=== PATIENT | male | born 1975 | race Caucasian/White ===

== ENCOUNTER → 2019-01-18 | Outpatient (CLI) | payer OTHER, BC ==
[~2019-01-18] MED LIST: NO HOME MEDS; OMEP10CASR PO; PERCOCET PO
[2019-01-18 13:21] LABS: BASO # 0.1 10^3/uL (0.0-0.2); BASO % 0.9 % (0.0-1.0); EOS # 0.1 10^3/uL (0.0-0.50); EOS % 1.3 % (0.0-3.0); HEMATOCRIT 47.7 % (42.0-52.0); HEMOGLOBIN 15.8 g/dl (13.5-17.5); LYMPH # 1.9 10^3/uL (1.5-4.5); LYMPH % 34.5 % (24.0-44.0); MEAN CORPUSCULAR HEMOGLOBIN 29.1 pg (27.0-33.0); MEAN CORPUSCULAR HGB CONC 33.1 g/dl (32.0-36.5); MEAN CORPUSCULAR VOLUME 87.8 fl (80.0-96.0); MONO # 0.4 10^3/uL (0.0-0.8); MONO % 7.5 % (0.0-5.0); NEUTROPHILS # 3.1 10^3/uL (1.8-7.7); NEUTROPHILS % 55.4 % (36.0-66.0); PLATELET COUNT, AUTOMATED 213 10^3/uL (150-450); RED BLOOD COUNT 5.43 10^6/uL (4.30-6.10); WHITE BLOOD COUNT 5.6 10^3/uL (4.0-10.0)
[2019-01-18 13:37] LABS: ALBUMIN 3.9 GM/DL (3.2-5.2); ALT/SGPT 32 U/L (12-78); BILIRUBIN,TOTAL 0.8 MG/DL (0.2-1.0); BLOOD UREA NITROGEN 25 MG/DL (7-18); CALCIUM LEVEL 8.8 MG/DL (8.5-10.1); CARBON DIOXIDE LEVEL 27 MEQ/L (21-32); CHLORIDE LEVEL 109 MEQ/L (98-107); CHOLESTEROL LEVEL 140 MG/DL (<200); CREATININE FOR GFR 0.97 MG/DL (0.70-1.30); FREE T4 1.09 NG/DL (0.76-1.46); GLOMERULAR FILTRATION RATE > 60.0 (>60); GLUCOSE, FASTING 100 MG/DL (70-100); HDL CHOLESTEROL 25 MG/DL (>40); LDL CHOLESTEROL 85 MG/DL (<100); NON-HDL-C 115 MG/DL; POTASSIUM SERUM 4.3 MEQ/L (3.5-5.1); PROSTATIC SPECIFIC AG MONITOR 1.16 NG/ML (< 4.00); SODIUM LEVEL 141 MEQ/L (136-145); TRIGLYCERIDES LEVEL 151 MG/DL (<150)
[2019-01-18 13:57] LABS: HEMOGLOBIN A1c 5.6 %
== END ==
LOC: M WUC 09:34
PROVIDERS: ATTEND Physician Assistant
DX: Z13.29 Encounter for screening for other suspected endocrine disorder (principal)

== ENCOUNTER → 2019-03-08 | Outpatient (REF) | payer OTHER ==
[2019-03-08 18:10] LABS: CHLAMYDIA DNA AMPLIFICATION NEGATIVE (NEGATIVE); GC DNA AMPLIFICATION NEGATIVE (NEGATIVE)
== END ==
LOC: M LAB REF 15:10
PROVIDERS: ATTEND Physician Assistant
DX: Z11.3 Encounter for screening for infections with a predominantly sexual mode of transmission (principal)

== ENCOUNTER → 2019-09-16 | Outpatient (CLI) | payer BC, OTHER ==
--- NOTE | 2019-09-21 10:17 | SLEEPCENT ---
DATE OF PROCEDURE: 09/16/2019 ORDERED BY: Dennise Pitts NP Nocturnal polysomnography was performed for evaluation of sleep physiology in this patient with a history of excessive somnolence and nonrestorative sleep. 8 hours and 4 minutes of data were reviewed. There were 334.5 minutes of sleep identified. Sleep latency was prolonged at 84 minutes. Rapid eye movement (REM) latency was prolonged at 128 minutes. Sleep architecture initially quite fragmented improved after interventions were made. Overall sleep efficiency was 69.9%. The patient's electrocardiogram showed a sinus rhythm with an average heart rate of 75 beats per minute. Electroencephalogram (EEG) showed normal waveforms for awake and sleep, some mild alpha intrusion. There were 124 respiratory events identified of 10 seconds in duration or greater for an apnea-hypopnea index of 22.2. Having clearly established the presence of obstructive sleep apnea syndrome early in testing, the study was stopped shortly before midnight for the application of pressure therapy. A ResMed Quattro full-face mask of large size was used; 5 cm of water pressure were applied to the circuit and the lights were extinguished. Throughout the remaining hours of testing pressure titration was performed. Respiratory events were reasonably palliated. Late in the study, the patient moved into the left lateral recumbent position and snoring was noted with mild hypopneic patterning. Best sleep was seen on a CPAP pressure of +17. IMPRESSION: Obstructive sleep apnea syndrome (G47.33). Apnea-hypopnea index 22.2. RECOMMENDATIONS: Nightly use of pressure therapy 17 cm of water.
== END ==
LOC: M SLEEP 20:33
PROVIDERS: ATTEND Nurse Practitioner Adult Health
DX: G47.33 Obstructive sleep apnea (adult) (pediatric) (principal)

== ENCOUNTER → 2020-08-23 | Outpatient (CLI) | payer BC, OTHER ==
--- NOTE | 2020-08-23 09:35 | REP ---
INDICATION: SPRAIN OR RIGHT WRIST AND RIGHT THUMB COMPARISON: None. TECHNIQUE: Four views FINDINGS: There is no fracture or dislocation. Mineralization and joint spaces are normal. There are no calcifications or foreign bodies. IMPRESSION: Essentially negative right thumb. <Electronically signed by Odilon Pan > 08/23/20 0941
--- NOTE | 2020-08-23 09:35 | REP ---
INDICATION: SPRAIN OR RIGHT WRIST AND RIGHT THUMB COMPARISON: None. TECHNIQUE: Four views FINDINGS: There is no fracture or dislocation. Mineralization and joint spaces are normal. There are no calcifications or foreign bodies. IMPRESSION: Essentially negative right wrist. . <Electronically signed by Odilon Pan > 08/23/20 0931
== END ==
LOC: M WUC 08:48
PROVIDERS: ATTEND Physician Assistant
DX: S63.511A Sprain of carpal joint of right wrist, initial encounter (principal); S63.641A Sprain of metacarpophalangeal joint of right thumb, initial encounter; X58.XXXA Exposure to other specified factors, initial encounter; Y92.9 Unspecified place or not applicable

== ENCOUNTER 2020-10-16 11:14 | Emergency (ER) | payer BC, OTHER ==
[~2020-10-16] VITALS: Ht 182.9 cm; Wt 146.7 kg
[2020-10-16] MEDS ORDERED: LISI-898 (11:26)
[2020-10-16] MEDS ORDERED: AUGM875T28 PO (14:03)
[2020-10-16 14:09] VITALS: BP 144/92
== END 2020-10-16 14:21 | disposition home or self-care (01) ==
LOC: M ED 11:14
DX: J02.9 Acute pharyngitis, unspecified (principal); I10 Essential (primary) hypertension; Z79.899 Other long term (current) drug therapy; Z91.018 Allergy to other foods; Z91.030 Bee allergy status

== ENCOUNTER → 2020-12-08 | Outpatient (CLI) | payer BC, OTHER ==
[~2020-12-08] MED LIST changes: +AUGM875T28 PO; +LISI-898
[2020-12-08 11:00] LABS: BASO # 0.1 10^3/uL (0.0-0.2); BASO % 0.9 % (0.0-1.0); EOS # 0.1 10^3/uL (0.0-0.5); EOS % 1.3 % (0.0-3.0); HEMOGLOBIN 16.9 g/dl (13.5-17.5); LYMPH # 1.9 10^3/uL (1.5-5.0); LYMPH % 27.4 % (24.0-44.0); MEAN CORPUSCULAR HEMOGLOBIN 29.1 pg (27.0-33.0); MEAN CORPUSCULAR HGB CONC 33.1 g/dl (32.0-36.5); MEAN CORPUSCULAR VOLUME 87.9 fl (80.0-96.0); MONO # 0.4 10^3/uL (0.0-0.8); MONO % 6.3 % (2.0-8.0); NEUTROPHILS # 4.4 10^3/uL (1.5-8.5); NEUTROPHILS % 63.8 % (36.0-66.0); PLATELET COUNT, AUTOMATED 204 10^3/uL (150-450); WHITE BLOOD COUNT 6.9 10^3/uL (4.0-10.0)
[2020-12-08 11:32] LABS: ALBUMIN 3.7 GM/DL (3.2-5.2); ALT/SGPT 34 U/L (12-78); BILIRUBIN,TOTAL 0.6 MG/DL (0.2-1.0); BLOOD UREA NITROGEN 22 MG/DL (7-18); CALCIUM LEVEL 9.1 MG/DL (8.5-10.1); CARBON DIOXIDE LEVEL 28 MEQ/L (21-32); CHLORIDE LEVEL 107 MEQ/L (98-107); CHOLESTEROL LEVEL 162 MG/DL (<200); CREATININE FOR GFR 0.88 MG/DL (0.70-1.30); GLOMERULAR FILTRATION RATE > 60.0 (>60); GLUCOSE, FASTING 115 MG/DL (70-100); HDL CHOLESTEROL 24 MG/DL (>40); LDL CHOLESTEROL 98 MG/DL (<100); NON-HDL-C 138 MG/DL; NT-PRO BNP 38 PG/ML (<125); POTASSIUM SERUM 4.6 MEQ/L (3.5-5.1); SODIUM LEVEL 140 MEQ/L (136-145); TOTAL PROTEIN 7.3 GM/DL (6.4-8.2); TRIGLYCERIDES LEVEL 201 MG/DL (<150)
[2020-12-08 13:24] LABS: HEMOGLOBIN A1c 5.4 %
== END ==
LOC: M LAB 10:28
PROVIDERS: ATTEND Physician Assistant
DX: I10 Essential (primary) hypertension (principal)
CPT/HCPCS: 36415; 80053; 80061; 83036; 83880; 85025; G0103

== ENCOUNTER → 2021-03-07 | Outpatient (REF) | payer OTHER ==
[2021-03-07 19:56] LABS: BACTERIA, URINE AUTO NEGATIVE (NEGATIVE); MUCUS, URINE SMALL (NEGATIVE); RBC, URINE AUTO 5 /HPF (0-3); SQUAMOUS EPITHELIAL CELL UR AU 0 /HPF (0-6); WBC, URINE AUTO 1 /HPF (0-3)
== END ==
LOC: M LAB REF 19:40
PROVIDERS: ATTEND Nurse Practitioner Family
DX: R31.9 Hematuria, unspecified (principal)

== ENCOUNTER 2022-03-13 20:06 | Emergency (ER) | payer OTHER ==
[~2022-03-13] VITALS: Ht 182.9 cm; Wt 106.7 kg
[~2022-03-13 20:06] MED LIST changes: -LISI-898; +LISI5TAB11
[2022-03-13 20:08] VITALS: BP 160/90
[2022-03-13] MEDS ORDERED: LIDOCAINE 5% (LIDODERM) PATCH TD ONE (21:40)
[2022-03-13] MEDS ORDERED: LIDO5DIS41 TD (21:44)
[2022-03-14] MEDS ORDERED: **NOTE PATIENT COMMENT** MISC XX SCH (09:30)
== END 2022-03-13 22:17 | disposition home or self-care (01) ==
LOC: M ED 20:06
DX: S22.32XA Fracture of one rib, left side, initial encounter for closed fracture (principal); V49.9XXA Car occupant (driver) (passenger) injured in unspecified traffic accident, initial encounter; Y92.410 Unspecified street and highway as the place of occurrence of the external cause; I10 Essential (primary) hypertension; Z91.018 Allergy to other foods; Z91.030 Bee allergy status; Z79.899 Other long term (current) drug therapy

== ENCOUNTER 2022-09-08 10:17 | Emergency (ER) | payer BC, OTHER ==
[~2022-09-08] VITALS: Ht 182.9 cm; Wt 163.0 kg
[~2022-09-08 10:17] MED LIST changes: +LIDO5DIS41 TD
[2022-09-08] MEDS ORDERED: BENZ200C70 (10:32)
[2022-09-08] MEDS ORDERED: ALBU8.5H (10:32)
[2022-09-08] MEDS ORDERED: IPRATROPIUM 0.5MG/ALBUTEROL 2.5MG INH SOL UD 3ML (DUONEB) NEB ONE (11:50)
[2022-09-08 13:10] LABS: BASO # 0.1 10^3/uL (0.0-0.2); EOS # 0.1 10^3/uL (0.0-0.5); EOS % 1.9 % (0.0-3.0); HEMOGLOBIN 15.5 g/dl (13.5-17.5); LYMPH # 1.3 10^3/uL (1.5-5.0); MEAN CORPUSCULAR HEMOGLOBIN 29.1 pg (27.0-33.0); MEAN CORPUSCULAR HGB CONC 31.6 g/dl (32.0-36.5); MEAN CORPUSCULAR VOLUME 92.1 fl (80.0-96.0); MONO # 0.6 10^3/uL (0.0-0.8); MONO % 10.9 % (2.0-8.0); NEUTROPHILS # 3.1 10^3/uL (1.5-8.5); NEUTROPHILS % 60.8 % (36.0-66.0); PLATELET COUNT, AUTOMATED 210 10^3/uL (150-450); RED BLOOD COUNT 5.32 10^6/uL (4.30-6.10); WHITE BLOOD COUNT 5.2 10^3/uL (4.0-10.0)
[2022-09-08 13:30] LABS: CK-MB VALUE MASS < 1.0 NG/ML (<3.6)
[2022-09-08 13:31] LABS: BLOOD UREA NITROGEN 19 MG/DL (9-23); CALCIUM LEVEL 8.8 MG/DL (8.5-10.1); CARBON DIOXIDE LEVEL 24 MMOL/L (20-31); CHLORIDE LEVEL 105 MMOL/L (98-107); CREATININE FOR GFR 0.86 MG/DL (0.70-1.30); GLOMERULAR FILTRATION RATE > 60.0 (>60); GLUCOSE, FASTING 115 MG/DL (60-100); POTASSIUM SERUM 4.9 MMOL/L (3.5-5.1); SODIUM LEVEL 140 MMOL/L (136-145)
[2022-09-08 13:32] LABS: CPK CREATINE PHOSPHOKINASE 144 U/L (46-171); MB/CK RELATIVE INDEX 0.69 (< OR =4)
[2022-09-08] MEDS ORDERED: ISOVUE-370 76% 100ML VIAL As Ordered ONE (13:51)
[2022-09-08] MEDS ORDERED: GUAI1SOL7 PO (14:49)
[2022-09-08] MEDS ORDERED: FLON1SPR NARES (14:49)
[2022-09-08] MEDS ORDERED: PRED20TA PO (14:49)
[2022-09-08] MEDS ORDERED: CLAR10CA3 PO (14:49)
[2022-09-08 14:57] VITALS: BP 144/85
== END 2022-09-08 15:50 | disposition home or self-care (01) ==
LOC: M ED 10:17
DX: R06.00 Dyspnea, unspecified (principal); J06.9 Acute upper respiratory infection, unspecified; E66.01 Morbid (severe) obesity due to excess calories; I10 Essential (primary) hypertension; K21.9 Gastro-esophageal reflux disease without esophagitis; Z79.899 Other long term (current) drug therapy; Z91.013 Allergy to seafood; Z91.030 Bee allergy status
CPT/HCPCS: 71046; 71275; 80048; 82550; 82553; 83880; 84484; 85025; 85379; 87428; 93005; 94640; 96374; 99284; J1100

== ENCOUNTER → 2024-02-28 | Outpatient (CLI) | payer BC ==
[~2024-02-28] MED LIST changes: +ALBU8.5H; +BENZ200C70; +CLAR10CA3 PO; +FLON1SPR NARES; +GUAI1SOL7 PO; +PRED20TA PO
== END ==
LOC: M RAD 08:55
PROVIDERS: ATTEND Physician Assistant
DX: J45.901 Unspecified asthma with (acute) exacerbation (principal)

== ENCOUNTER 2024-04-09 08:52 | Emergency (ER) | payer BC ==
[~2024-04-09] VITALS: Ht 182.9 cm; Wt 163.0 kg
[2024-04-09] MEDS ORDERED: ISOVUE-370 76% 100ML VIAL As Ordered ONE (15:09)
[2024-04-09] MEDS: ONDANSETRON 4MG 2ML VIAL IV ONE (15:13)
[2024-04-09] MEDS: NS 1,000 ML IV ONE (15:14)
[2024-04-09 15:23] LABS: BASO % 0.5 % (0.0-1.0); EOS # 0.1 10^3/uL (0.0-0.5); EOS % 1.2 % (0.0-3.0); HEMATOCRIT 47.4 % (42.0-52.0); HEMOGLOBIN 15.5 g/dl (13.5-17.5); LYMPH % 25.4 % (24.0-44.0); MEAN CORPUSCULAR HGB CONC 32.7 g/dl (32.0-36.5); MEAN CORPUSCULAR VOLUME 91.7 fl (80.0-96.0); MONO # 0.6 10^3/uL (0.0-0.8); MONO % 7.8 % (2.0-8.0); NEUTROPHILS % 64.7 % (36.0-66.0); PLATELET COUNT, AUTOMATED 206 10^3/uL (150-450); RED BLOOD COUNT 5.17 10^6/uL (4.30-6.10); WHITE BLOOD COUNT 7.7 10^3/uL (4.0-10.0)
[2024-04-09 15:28] LABS: BILIRUBIN,DIRECT 0.2 MG/DL (<0.4); BILIRUBIN,TOTAL 1.2 MG/DL (0.3-1.2); TOTAL PROTEIN 7.5 G/DL (5.7-8.2)
[2024-04-09 19:32] VITALS: BP 133/85; TEMP 97.9; O2SAT 96
[2024-04-09] MEDS ORDERED: ONDA-282 PO (20:05)
== END 2024-04-09 21:37 | disposition home or self-care (01) ==
LOC: M ED 08:52
DX: K43.9 Ventral hernia without obstruction or gangrene (principal); R11.2 Nausea with vomiting, unspecified; R19.7 Diarrhea, unspecified; I10 Essential (primary) hypertension; K21.9 Gastro-esophageal reflux disease without esophagitis; Z91.030 Bee allergy status; Z91.013 Allergy to seafood
CPT/HCPCS: 74177; 80047; 80076; 83605; 83690; 85025; 87507; 96374; 99284; J2405; Q9967

== ENCOUNTER 2024-11-21 20:12 | Emergency (ER) | payer BC ==
[~2024-11-21] VITALS: Ht 182.9 cm; Wt 171.4 kg
[~2024-11-21 20:12] MED LIST changes: +ONDA-282 PO
[2024-11-21] MEDS: ONDANSETRON 4MG ORAL DISINTEGRATING TAB PO ONE (22:48)
[2024-11-21] MEDS: ACETAMINOPHEN 325 MG TAB PO ONE (22:49)
[2024-11-21] MEDS: ALBUTEROL 90 MCG/ACT 8GM HFA INHALER INH ONE (23:04)
[2024-11-21] MEDS ORDERED: BENZ200C70 PO (23:39)
[2024-11-21] MEDS ORDERED: OSEL75CA PO (23:39)
[2024-11-21] MEDS ORDERED: VENTAER INH (23:39)
[2024-11-21] MEDS ORDERED: ONDA-282 PO (23:39)
[2024-11-21 23:47] VITALS: BP 106/54; TEMP 98.1
[2024-11-22] MEDS: BENZONATATE 100MG CAPSULE PO ONE (00:04)
[2024-11-22] MEDS: OSELTAMIVIR PHOSPHATE 75 MG CAP PO ONE (00:04)
[2024-11-22 00:08] VITALS: O2SAT 96
== END 2024-11-22 00:12 | disposition home or self-care (01) ==
LOC: M ED 20:12 → EDSEX 20:12 → M ED 11-22 00:12
DX: J09.X2 Influenza due to identified novel influenza A virus with other respiratory manifestations (principal); J98.01 Acute bronchospasm; I10 Essential (primary) hypertension; Z79.899 Other long term (current) drug therapy; Z91.013 Allergy to seafood; Z91.030 Bee allergy status

== ENCOUNTER 2024-12-02 16:30 | Emergency (ER) | payer BC ==
[~2024-12-02] VITALS: Ht 182.9 cm; Wt 170.0 kg
[~2024-12-02 16:30] MED LIST changes: +BENZ200C70 PO; +OSEL75CA PO; +VENTAER INH
[2024-12-02] MEDS ORDERED: LISI20TA37 (16:41)
[2024-12-02 17:38] LABS: BASO # 0.1 10^3/uL (0.0-0.2); BASO % 0.7 % (0.0-1.0); EOS # 0.1 10^3/uL (0.0-0.5); EOS % 1.2 % (0.0-3.0); HEMATOCRIT 47.9 % (42.0-52.0); HEMOGLOBIN 15.8 g/dl (13.5-17.5); LYMPH # 2.1 10^3/uL (1.5-5.0); LYMPH % 23.8 % (24.0-44.0); MEAN CORPUSCULAR HEMOGLOBIN 29.8 pg (27.0-33.0); MEAN CORPUSCULAR VOLUME 90.2 fl (80.0-96.0); MONO # 0.7 10^3/uL (0.0-0.8); MONO % 8.1 % (2.0-8.0); NEUTROPHILS # 5.9 10^3/uL (1.5-8.5); NEUTROPHILS % 65.8 % (36.0-66.0); PLATELET COUNT, AUTOMATED 239 10^3/uL (150-450); RED BLOOD COUNT 5.31 10^6/uL (4.30-6.10); WHITE BLOOD COUNT 8.9 10^3/uL (4.0-10.0)
[2024-12-02 17:48] LABS: LIPASE 35 U/L (12-53)
[2024-12-02 17:50] LABS: ALBUMIN 3.6 G/DL (3.2-5.2); ALKALINE PHOSPHATASE 92 U/L (40-129); ALT/SGPT 28 U/L (7.0-40); AST/SGOT 20 U/L (<34); BILIRUBIN,DIRECT < 0.1 MG/DL (<0.4); BILIRUBIN,TOTAL 0.5 MG/DL (0.3-1.2); TOTAL PROTEIN 7.3 G/DL (5.7-8.2)
[2024-12-02] MEDS ORDERED: ISOVUE-370 76% 100ML VIAL As Ordered ONE (19:06)
[2024-12-02] MEDS: ONDANSETRON 4MG 2ML VIAL IV ONE (19:11)
[2024-12-02 19:49] LABS: KETONE, URINE AUTO RFX NEGATIVE (NEGATIVE); LEUKOCYTE ESTERASE UR AUTO RFX NEGATIVE (NEGATIVE); MUCUS, URINE RFX SMALL (NEGATIVE); NITRITE, URINE AUTO RFX NEGATIVE (NEGATIVE); RBC, URINE AUTO RFX 0 /HPF (0-3); SQUAM EPITHELIAL CELL UR AURFX 0 /HPF (0-6); WBC, URINE AUTO RFX 0 /HPF (0-3)
[2024-12-02 21:10] VITALS: TEMP 97.6; O2SAT 93
[2024-12-02 21:11] VITALS: BP 181/85
[2024-12-02] MEDS ORDERED: ONDA-282 PO (21:25)
== END 2024-12-02 21:21 | disposition home or self-care (01) ==
LOC: EDSEX 16:30 → M ED 16:30
DX: K42.9 Umbilical hernia without obstruction or gangrene (principal); I10 Essential (primary) hypertension; Z91.013 Allergy to seafood
CPT/HCPCS: 74177; 80047; 80076; 81001; 83690; 85025; 96374; 99284; J2405; Q9967

== ENCOUNTER → 2025-01-24 | Outpatient (REF) | payer BC ==
[~2025-01-24] MED LIST changes: +LIDO1ADH93 TD; -LIDO5DIS41 TD; +LISI20TA37
== END ==
LOC: M SFHCLERA 15:27
PROVIDERS: ATTEND Internal Medicine
DX: I10 Essential (primary) hypertension (principal); Z53.8 Procedure and treatment not carried out for other reasons

== ENCOUNTER 2025-03-25 13:19 | Emergency (ER) | payer BC ==
[~2025-03-25] VITALS: Ht 182.9 cm; Wt 161.4 kg
[~2025-03-25 13:19] MED LIST changes: +HYDR-3490 PO; +TELM1TAB33 PO
[2025-03-25 17:17] LABS: BASO # 0.1 10^3/uL (0.0-0.2); BASO % 0.5 % (0.0-1.0); EOS # 0.1 10^3/uL (0.0-0.5); EOS % 0.7 % (0.0-3.0); LYMPH # 1.9 10^3/uL (1.5-5.0); LYMPH % 16.2 % (24.0-44.0); MONO # 0.7 10^3/uL (0.0-0.8); MONO % 5.7 % (2.0-8.0); NEUTROPHILS # 9.2 10^3/uL (1.5-8.5); NEUTROPHILS % 76.6 % (36.0-66.0); PLATELET COUNT, AUTOMATED 229 10^3/uL (150-450)
[2025-03-25 17:35] LABS: ERYTHROCYTE SEDIMENTATION RATE 32 mm/hr (0-15)
[2025-03-25 17:42] LABS: C REACTIVE PROTEIN QUANTITATIV 0.73 MG/DL (<1.0); CALCIUM LEVEL 9.3 MG/DL (8.5-10.1); CARBON DIOXIDE LEVEL 29 MMOL/L (20-31); CHLORIDE LEVEL 102 MMOL/L (98-107); CREATININE FOR GFR 0.99 MG/DL (0.70-1.30); GLOMERULAR FILTRATION RATE > 90.0 (>60); POTASSIUM SERUM 4.9 MMOL/L (3.5-5.1); SODIUM LEVEL 141 MMOL/L (136-145)
[2025-03-25] MEDS: NS 500 ML IV ONE (19:00)
[2025-03-25] MEDS: KETOROLAC 30 MG/ML 1 ML VIAL IV ONE (19:00)
[2025-03-25] MEDS: ceFAZolin SOD 2 GM in DEXTROSE 5% (D5W) ADV/MINI-BAG 50 ML IV ONE (19:00)
[2025-03-25] MEDS: LIDOCAINE 2% MDV 20 ML VIAL SC ONE (20:50)
[2025-03-25] MEDS ORDERED: CEPH500C PO (21:40)
[2025-03-25 22:27] VITALS: BP 151/71; TEMP 96.6; O2SAT 97
== END 2025-03-25 22:36 | disposition home or self-care (01) ==
LOC: M ED 13:19
DX: M79.672 Pain in left foot (principal); M79.675 Pain in left toe(s); I10 Essential (primary) hypertension; M77.32 Calcaneal spur, left foot; Z79.899 Other long term (current) drug therapy; Z91.030 Bee allergy status; Z91.013 Allergy to seafood
CPT/HCPCS: 73630; 76882; 80048; 83605; 85025; 85652; 86140; 87070; 87077; 87186; 96361; 96365; 96374; 99284; J0690; J1885

== ENCOUNTER → 2025-04-28 | Outpatient (CLI) | payer BC ==
[~2025-04-28] MED LIST changes: +BACT800T5 PO; +CEPH500C PO
== END ==
LOC: M WUC 13:23
PROVIDERS: ATTEND Student in an Organized Health Care Education/Training Program
DX: M79.675 Pain in left toe(s) (principal)

== ENCOUNTER → 2025-07-25 | Outpatient (REF) | payer BC | LOC: M SFHCLERA 14:07 | PROVIDERS: ATTEND Internal Medicine | DX: I10 Essential (primary) hypertension (principal) ==

== ENCOUNTER → 2025-08-11 | Outpatient (CLI) | payer BC ==
[2025-08-11 11:34] LABS: BASO # 0.1 10^3/uL (0.0-0.2); BASO % 0.7 % (0.0-1.0); EOS # 0.1 10^3/uL (0.0-0.5); EOS % 1.1 % (0.0-3.0); LYMPH # 1.7 10^3/uL (1.5-5.0); LYMPH % 24.7 % (24.0-44.0); MONO # 0.5 10^3/uL (0.0-0.8); MONO % 7.0 % (2.0-8.0); NEUTROPHILS # 4.6 10^3/uL (1.5-8.5); NEUTROPHILS % 66.2 % (36.0-66.0); PLATELET COUNT, AUTOMATED 214 10^3/uL (150-450)
[2025-08-11 11:51] LABS: CREATININE, URINE 110.2 MG/DL
[2025-08-11 12:03] LABS: CALCIUM LEVEL 8.4 MG/DL (8.5-10.1); CARBON DIOXIDE LEVEL 28 MMOL/L (20-31); CHLORIDE LEVEL 105 MMOL/L (98-107); CREATININE FOR GFR 0.88 MG/DL (0.70-1.30); GLOMERULAR FILTRATION RATE > 90.0 (>56); POTASSIUM SERUM 4.1 MMOL/L (3.5-5.1); SODIUM LEVEL 144 MMOL/L (136-145)
[2025-08-11 12:06] LABS: MALB URINE SIEMENS 679.0 MG/L; MAU/CREAT RATIO 616.1 MCG/MG (0.0-30.0)
== END ==
LOC: M LAB 10:56
PROVIDERS: ATTEND Internal Medicine
DX: I10 Essential (primary) hypertension (principal)